=== PATIENT | female | born 1975 | race Caucasian/White ===

== ENCOUNTER 2019-07-08 06:36 | Day surgery (SDC) | payer BC ==
--- NOTE | 2019-07-08 06:34 | History and Physical - [facility] ---
CHIEF COMPLAINT/HISTORY OF CHIEF COMPLAINT: This patient presents with a history of lumbar radiculopathy. The pattern of pain has been characterized as neurogenic intermittent claudication. The pain appears to be aggravated or have an onset with ambulation activities and subsides with forward bending or sitting. Her diagnostic studies confirm lumbar spinal stenosis at multiple levels. She has been evaluated surgically and found not to be a surgical candidate. Her treatment history goes back a number of years which have been suggested at a minimum of 10. Due to the failure of all therapy, she is here for interspinal spacer placement. PAST MEDICAL HISTORY: Hypothyroidism. PAST SURGICAL HISTORY: Craniotomy, section, and pump placement. MEDICATIONS ON ADMISSION: List to be provided. ALLERGIES: None listed although Penicillin, sulfa and erythromycin have been identified. FAMILY/PSYCHOSOCIAL HISTORY: Social history - Smoking and caffeine. Family history - Asthma, diabetes, hypertension, and cancer. SYSTEMS REVIEW: The patient is appropriate in no acute distress. The remainder of the systems review is positive for glasses, headaches, and difficulty sleeping. PHYSICAL EXAMINATION: Height is 5'5", weight is 130. No vital signs. HEENT: Within normal limits. LUNGS: Clear. HEART: Rapid and regular. ABDOMEN: Nontender. MUSCULOSKELETAL: Examination of the musculoskeletal system shows diffuse tenderness lumbar spine. Range of motion causes primary pain into both legs. There currently are no motor or sensory abnormalities. Ambulation - No assistive device utilized. NEUROLOGIC: Cranial nerves are intact. IMPRESSION: LUMBAR SPINAL STENOSIS WITH NEUROGENIC INTERMITTENT CLAUDICATION, ICD-10 CODE M48.062. PLAN: This patient is here for placement of an interspinal spacer for indirect lumbar decompression at L4-L5 consistent with the level of her spinal stenosis. The risks, side effects and complications have all been reviewed and discussed. She understands there are restrictions for six weeks. An incision will be made at the interspace L4-L5 which will be closed with sonu or sutures. She will be seen at two weeks postop and then evaluated every two weeks through the six week restrictions. She has been put in contact with a clinical specialist and all questions have been answered. JOB NUMBER: [id number] MTDD
[~2019-07-08 06:36] MED LIST: ACETAMINOPHEN 1,000 MG/100 ML BTL IVPB ONE; CLINDAMYCIN 600MG/50ML PREMIX 600 MG/50 ML BAG IVPB ONE; FAMOTIDINE 20MG TABLET PO ONE; MECLIZINE 25 MG TABLET PO ONE; METOCLOPRAMIDE 10 MG TABLET PO ONE
[2019-07-08] MEDS ORDERED: MIDAZOLAM HCL 2MG/2ML VIAL IV ONE (06:37)
[2019-07-08] MEDS ORDERED: PROPOFOL 10 MG/ML VIAL IV ONE (06:37)
[2019-07-08] MEDS ORDERED: *PACU ONLY* KETAMINE HCL 10 MG/ML (20ML) VIAL IV ONE (06:37)
[2019-07-08] MEDS ORDERED: LIDOCAINE 2% MDV (20MG/ML) 20ML VIAL IV ONE (06:37)
[2019-07-08] MEDS ORDERED: FENTANYL PF 100MCG/2ML VIAL IV ONE (06:37)
[2019-07-08] MEDS ORDERED: RINGERS SOLUTION,LACTATED 1,000 ML IV ONE ×2 (07:24→08:10)
[2019-07-08] MEDS ORDERED: LIDOCAINE 1% W/EPI 1:200,000 MPF 30ML SQ ONE (08:35)
[2019-07-08] MEDS ORDERED: BUPIVACAINE 0.5% W/EPI MPF 30 ML VIAL SQ ONE (08:36)
[2019-07-08] MEDS ORDERED: Clindamycin 600mg vial 150 MG/ML VIAL IR ONE (08:36)
[2019-07-08] MEDS ORDERED: OXYCODONE/APAP 10MG-325MG TABLET PO ONE (10:11)
--- NOTE | 2019-07-08 12:49 | Operative Note - [facility] ---
DATE OF SURGERY: 07/08/2019 PREOPERATIVE DIAGNOSIS: LUMBAR SPINAL STENOSIS WITH NEUROGENIC INTERMITTENT CLAUDICATION, ICD-10 CODE M48.062. OPERATION: FLUOROSCOPICALLY GUIDED INDIRECT LUMBAR DECOMPRESSION AT L4-L5 USING INTERSPINAL SPACER - VERTIFLEX. SURGEON: John Tee D.O. INDICATION: This patient presents with history of lumbar spinal stenosis and pain into the lower extremities consistent with the symptom pattern of neurogenic intermittent claudication. Due to the failure of therapy she is here for an interspinal spacer placement at L4-L5 consistent with the pattern of pain and lumbar spinal stenosis identified on CT. PROCEDURE: Intravenous line, vital sign monitoring, IV sedation, prepped and draped, sterile technique. The patient was positioned prone. Sterile prep, sterile technique. The spinal interspace at L4-L5 was identified and marked bilaterally. The skin was infiltrated, a series of interspinous process dilators were placed using AP and lateral imaging. After the skin and ligament were infiltrated with local, on lateral image the first dilator was positioned and then a second dilator was used to distract the spinous processes and engage the most distal part of the spinous processes while staying posterior to the laminar line. A gauge was then used to identify the size of the spacer required to fit the distance between the spinous processes. A 16 interspinal spacer was then positioned using AP and lateral imaging. Opened to engage the spinous processes inferior at L4 and superior at L5. The spacer was expanded to fully distract the spinous processes at L4-L5. The devices and instruments were removed, antibiotic irrigation was performed and the patient tolerated the procedure without difficulty. The incision was closed using 2-0 Vicryl and sonu for the skin. An Op-Site dressing was placed. She was transported to the Recovery Room stable. No side effects from the procedure or sedation. She had full functionality. DISCHARGE INSTRUCTIONS: 1. The sites are to remain clean and dry. She may shower if she keeps the dressing dry. 2. Standard medications resumed including the antibiotic Clindamycin, she will take 300 mg four times a day for ten days. She has been provided with a script for pain medication to help control her incisional pain. She will be seen in the office in two weeks. Total period for restrictions six weeks. She will be seen at two week intervals. We will evaluate progress during this period of time. She is to maintain strict restrictions, limiting bend, lift, push, pull until she is seen in the office in two weeks. At that point further restrictions will be identified. All other instructions were provided. She was then discharged. JOB NUMBER: [id number] MTDD
--- NOTE | 2019-07-10 06:16 | RADIOLOGY REPORT ---
EXAMINATION: Lumbar Spine Single View EXAM DATE: 07/08/2019 9:49 AM TECHNIQUE: Single AP view INDICATION: S/P VERTIFLEX IMPLANT @ 11/05 COMPARISON: 07/08/2016 ENCOUNTER: Initial FINDINGS: There has been interval placement of an implant at the L4-L5 disc level. Alternatively, this may be p osterior to the spine with extensions around the spinous processes of L4 and L5. Without a lateral ra diograph, its exact position is unclear. There is an infusion pump in place. The tip of the pump is now at the superior extent aspect of L2. P reviously, this was at T12. A linear metallic density is likely related to the infusion pump catheter . This was present on the prior study. IMPRESSION: 1. Interval implant at L4-L5. 2. Change in position of the infusion pump catheter tip. Dictated by: Willy Stack MD on 07/10/2019 6:11 AM. .
== END 2019-07-08 10:29 | disposition home or self-care (01) ==
LOC: SUR 06:36
PROVIDERS: ATTEND Pain Medicine Interventional Pain Medicine
DX: M48.062 Spinal stenosis, lumbar region with neurogenic claudication (principal); G62.9 Polyneuropathy, unspecified; J45.909 Unspecified asthma, uncomplicated; F17.210 Nicotine dependence, cigarettes, uncomplicated
CPT/HCPCS: 72020; 81025; C1821; J7120